=== PATIENT | female | born 1960 | race Caucasian/White ===

== ENCOUNTER 2020-07-10 11:25 | Observation (INO) ==
[2020-07-10] MEDS ORDERED: METOCLOPRAMIDE 10 MG/2 ML VIAL IV STA (12:29)
[2020-07-10] MEDS ORDERED: SODIUM CHLORIDE 0.9% 1,000 ML IV STA (12:29)
[2020-07-10 13:12] LABS: PT Patient Result 10.9 SECS (9.8-11.9); Partial Thromboplastin Time 25.4 SECS (23.9-33.8)
[2020-07-10 13:15] LABS: Alanine Aminotransferase 81 U/L (13-56); Albumin 2.7 G/DL (3.4-5.0); Alkaline Phosphatase 126 U/L (45-117); Aspartate Amino Transferase 32 U/L (0-37); Bilirubin,Direct < 0.100 MG/DL (0.0-0.20); Bilirubin,Indirect 0.3 MG/DL (0.0-1.0); Bilirubin,Total < 0.39 MG/DL (0.2-1.0); Total Protein 7.4 G/DL (6.4-8.3)
[2020-07-10] MEDS ORDERED: ONDANSETRON 4 MG/2 ML VIAL IV PRN (13:27)
[2020-07-10] MEDS ORDERED: GLUCAGON 1 MG VIAL IM PRN (13:27)
[2020-07-10] MEDS ORDERED: DEXTROSE 50% 25 GM/50 ML VIAL IV PRN (13:27)
[2020-07-10] MEDS ORDERED: cefTRIAXone 1,000 MG VIAL ONE (13:29)
[2020-07-10] MEDS ORDERED: cefTRIAXone 1,000 MG in SYRINGE 1 EACH IV SCH (13:30)
[2020-07-10] MEDS ORDERED: MORPHINE 4 MG/1 ML VIAL IV STA (13:34)
[2020-07-10] MEDS ORDERED: cefTRIAXone 1,000 MG in SODIUM CHLORIDE 0.9% 100 ML IV STA (13:36)
[2020-07-10] MEDS ORDERED: MORPHINE 4 MG/1 ML VIAL ONE (13:45)
[2020-07-10 14:09] LABS: Basophils # 0.1 10*3/uL (0.0-0.2); Basophils % 0.3 % (0.0-0.8); Eosinophils # 0.1 10*3/uL (0.0-0.87); Eosinophils % 0.6 % (0.00-10.9); Hematocrit 39.5 VOL% (35.7-47.0); Hemoglobin 12.5 GM/DL (12.0-16.0); Immature Granulocytes % 2.3 %; Immature Granulocytes Absolute 0.55 #; Lymphocytes # 2.2 10*3/uL (1.4-4.0); Lymphocytes % 9.2 % (21.3-54.2); Mean Corpuscular HGB Conc 31.6 GM/DL (32-36); Mean Platelet Volume 10.2 FL (9.6-12.0); Monocytes % 3.6 % (1.7-12.7); Platelet Count 516 T/CUMM (130-400); Red Blood Count 4.03 MC/CUMM (3.8-5.5); Red Cell Distribution Width 15.2 % (9.3-17.3); White Blood Count 23.4 T/CUMM (4-12)
[2020-07-10] MEDS ORDERED: LORazepam 2 MG/1 ML VIAL ONE (14:12)
[2020-07-10] MEDS ORDERED: LORazepam 2 MG/1 ML VIAL IV STA (14:20)
[2020-07-10 14:39] LABS: Lymphocytes 13 % (20-55); Macrocytosis 1+; Segmented Neutrophils 83 % (50-85); Total Cells Counted 100
[2020-07-10 14:40] LABS: Platelet Estimate Increased
[2020-07-10 14:41] LABS: Anisocytosis 2+; Burr Cells 1+; Polychromasia 1+; Toxic Granulation 1+
[2020-07-10 16:42] LABS: Alanine Aminotransferase 86 U/L (13-56); Albumin 2.7 G/DL (3.4-5.0); Alkaline Phosphatase 122 U/L (45-117); Aspartate Amino Transferase 30 U/L (0-37); Bilirubin,Total < 0.39 MG/DL (0.2-1.0); Blood Urea Nitrogen 35 MG/DL (7-18); Calcium 8.5 MG/DL (8.5-10.1); Estimated Glom Filtration Rate 20 ML/MIN; Glucose 93 MG/DL (74-106); Osmolality,Calculated 282.7 MOS/KG (273-304); Total Protein 7.3 G/DL (6.4-8.3)
[2020-07-10] MEDS: MORPHINE 4 MG/1 ML VIAL IV PRN ×2 (17:33→21:33)
[2020-07-10 18:32] LABS: Bacteria,Urine Occasional /HPF (Few); Bilirubin,Urine Negative (Negative); Blood, Urine Negative (Negative); Glucose,Urine (UA) Negative (Negative); Ketones,Urine Negative (Negative); Mucus,Urine Occasional /LPF (Occasional); Nitrite,Urine Negative (Negative); Protein,Urine Negative; RBC,Urine <1 /HPF (0-4); Squamous Epithelial Cell,Urine Occasional /HPF (0-10); Urine Appearance CLEAR (Clear); Urine Color Straw (Yellow); Urine Specific Gravity 1.011 (1.001-1.035); Urine Urobilinogen < 2.0 EU/DL (0.2-1.0); WBC,Urine 1 /HPF (0-6)
[2020-07-10 18:35] LABS: Barbiturates Screen,Urine Negative (Negative); Benzodiazepines Screen,Urine Negative (Negative); Cannabinoid Screen,Urine Negative (Negative); Opiate Screen,Urine Positive (Negative); Phencyclidine Screen,Urine Negative (Negative)
[2020-07-10] MEDS: PROMETHAZINE 25 MG/1 ML VIAL IM PRN (21:35)
[2020-07-11] MEDS: PROMETHAZINE 25 MG/1 ML VIAL IM PRN ×2 (04:35→19:40)
[2020-07-11 06:27] LABS: Basophils % 0.2 % (0.0-0.8); Eosinophils # 0.2 10*3/uL (0.0-0.87); Eosinophils % 0.9 % (0.00-10.9); Hematocrit 30.8 VOL% (35.7-47.0); Immature Granulocytes % 1.9 %; Immature Granulocytes Absolute 0.31 #; Lymphocytes % 12.4 % (21.3-54.2); Mean Corpuscular HGB Conc 32.5 GM/DL (32-36); Mean Corpuscular Volume 96.9 FL (87-102); Mean Platelet Volume 10.1 FL (9.6-12.0); Monocytes % 5.1 % (1.7-12.7); Neutrophils % 79.5 % (38.7-73.9); Platelet Count 430 T/CUMM (130-400)
[2020-07-11 06:40] LABS: Red Blood Count 3.18 MC/CUMM (3.8-5.5)
[2020-07-11 06:51] LABS: Albumin 2.1 G/DL (3.4-5.0); Bilirubin,Total 0.7 MG/DL (0.2-1.0); Calcium 8.1 MG/DL (8.5-10.1); Osmolality,Calculated 283.3 MOS/KG (273-304); Risk Ratio 3.18; Thyroid Stimulating Hormone 2.48 uIU/ml (0.358-3.74); Total Protein 5.6 G/DL (6.4-8.3); VLDL CHOLESTEROL 24.6 MG/DL
[2020-07-11 07:04] LABS: Burr Cells Slight; Hypochromasia 1+; Lymphocytes 9 % (20-55); Microcytosis 1+; Platelet Estimate Adequate; Segmented Neutrophils 87 % (50-85); Total Cells Counted 100
[2020-07-11 07:05] LABS: Ovalocytes Slight
[2020-07-11] MEDS: cefTRIAXone 1,000 MG in SYRINGE 1 EACH IV SCH (08:59)
[2020-07-11 09:56] LABS: Appearance,CSF Clear; Lymphocytes,CSF 50 %; Monocytes,CSF 50 %; Red Blood Cell,CSF < 1 C/CUMM; White Blood Cell,CSF 3 C/CUMM
[2020-07-11 10:07] LABS: Glucose,CSF 57 MG/DL (40-70)
[2020-07-11] MEDS: SODIUM BICARB INJ 100 MEQ in DEXTROSE 5% 1,000 ML IV SCH (11:01)
[2020-07-11] MEDS ORDERED: MAGNESIUM SULF RIDER 2 GM in PREMIX 1 EACH IV ONE (12:00)
[2020-07-11] MEDS: MORPHINE 4 MG/1 ML VIAL IV PRN (13:02)
[2020-07-11] MEDS ORDERED: BUTALBITAL/ACETAMIN/CAFFEINE 50-325-40 MG TABLET PO PRN (14:02)
[2020-07-11] MEDS ORDERED: BUTALBITAL/ACETAMIN/CAFFEINE 50-325-40 MG TABLET PO ONE (14:03)
[2020-07-11] MEDS ORDERED: ZIPRASIDONE 20 MG/1 ML VIAL IM ONE (14:39)
[2020-07-11] MEDS ORDERED: chlorproMAZINE INJ 50 MG in SODIUM CHLORIDE 0.9% 100 ML IV ONE (21:00)
[2020-07-12] MEDS: SODIUM BICARB INJ 100 MEQ in DEXTROSE 5% 1,000 ML IV SCH (01:44)
[2020-07-12] MEDS: PROMETHAZINE 25 MG/1 ML VIAL IM PRN (02:00)
[2020-07-12 06:07] LABS: Basophils % 0.2 % (0.0-0.8); Eosinophils # 0.1 10*3/uL (0.0-0.87); Eosinophils % 0.9 % (0.00-10.9); Hemoglobin 9.2 GM/DL (12.0-16.0); Immature Granulocytes % 1.9 %; Immature Granulocytes Absolute 0.21 #; Lymphocytes # 1.9 10*3/uL (1.4-4.0); Lymphocytes % 16.5 % (21.3-54.2); Mean Corpuscular HGB Conc 32.9 GM/DL (32-36); Mean Platelet Volume 9.8 FL (9.6-12.0); Monocytes % 6.1 % (1.7-12.7); Neutrophils % 74.4 % (38.7-73.9); Platelet Count 398 T/CUMM (130-400); Red Blood Count 2.98 MC/CUMM (3.8-5.5); Red Cell Distribution Width 14.7 % (9.3-17.3); White Blood Count 11.3 T/CUMM (4-12)
[2020-07-12 06:34] LABS: Alanine Aminotransferase 37 U/L (13-56); Alkaline Phosphatase 99 U/L (45-117); Aspartate Amino Transferase 24 U/L (0-37); Bilirubin,Total < 0.39 MG/DL (0.2-1.0); Blood Urea Nitrogen 15 MG/DL (7-18); Estimated Glom Filtration Rate 26 ML/MIN; Glucose 122 MG/DL (74-106); Osmolality,Calculated 278.5 MOS/KG (273-304); Total Protein 5.6 G/DL (6.4-8.3)
[2020-07-12 08:12] VITALS: BP 113/56
[2020-07-12] MEDS: cefTRIAXone 1,000 MG in SYRINGE 1 EACH IV SCH (09:04)
[2020-07-12] MEDS ORDERED: SUMAtriptan 6 MG/0.5 ML VIAL SUBCUT ONE (09:04)
[2020-07-12 09:31] LABS: Total Protein 5.7 G/DL (6.4-8.3)
[2020-07-12 12:05] LABS: VDRL Spinal Fluid Negative (Negative)
[2020-07-12 16:56] LABS: CMV PCR Source CSF; Epstein-Barr Virus Result Negative (Negative); Epstein-Barr Virus Source CSF; Specimen Source CSF
[2020-07-15 10:11] LABS: Immunoglobulin A (Chem) 201 MG/DL (70-400); Immunoglobulin G (Chem) 702 MG/DL (700-1600); Immunoglobulin M (Chem) 32 MG/DL (40-230); Total Protein (Chem) 5.7 G/DL (6.4-8.3)
[2020-07-15 12:46] LABS: West Nile Virus Ab, IgG, CSF Negative (Negative); West Nile Virus Ab, IgM, CSF Negative (Negative)
[2020-07-16 00:31] LABS: Enterovirus PCR Source CSF
[2020-07-16 00:34] LABS: Adenovirus PCR Negative (Negative); Specimen Source CSF
[2020-07-16 10:52] LABS: Albumin (SPE) Rel % 52.6 %; Alpha 1 (SPE) 0.3 G/DL (0.1-0.4); Alpha 1 (SPE) Rel % 5.9 %; Alpha 2 (SPE) Rel % 17.4 %; Beta (SPE) 0.6 G/DL (0.5-1.1); Beta (SPE) Rel % 11.3 %; Gamma (SPE) Rel % 12.8 %
[2020-07-16 10:56] LABS: Gamma (SPE) 0.7 G/DL (0.7-1.7)
[2020-07-16 12:41] LABS: M. Tuberculosis PCR Result Negative (Negative); M. Tuberculosis PCR Source CSF
== END 2020-07-12 11:20 | disposition home or self-care (01) ==
LOC: N.ED 11:25 → N.EDINP 11:25 → N.5E 15:59
PROVIDERS: ADMIT Hospitalist; ATTEND Hospitalist

== ENCOUNTER 2020-07-16 10:55 | Observation (INO) ==
[2020-07-16] MEDS ORDERED: SODIUM CHLORIDE 0.9% 1,000 ML IV STA (13:16)
[2020-07-16] MEDS ORDERED: ONDANSETRON 4 MG/2 ML VIAL IV STA (13:39)
[2020-07-16 13:42] LABS: Basophils # 0.1 10*3/uL (0.0-0.2); Basophils % 0.5 % (0.0-0.8); Eosinophils # 0.1 10*3/uL (0.0-0.87); Eosinophils % 0.6 % (0.00-10.9); Hematocrit 34.2 VOL% (35.7-47.0); Hemoglobin 11.1 GM/DL (12.0-16.0); Immature Granulocytes % 0.6 %; Immature Granulocytes Absolute 0.12 #; Lymphocytes # 1.9 10*3/uL (1.4-4.0); Lymphocytes % 8.8 % (21.3-54.2); Mean Corpuscular HGB Conc 32.5 GM/DL (32-36); Mean Corpuscular Volume 94.7 FL (87-102); Mean Platelet Volume 9.8 FL (9.6-12.0); Neutrophils % 86.5 % (38.7-73.9); Platelet Count 704 T/CUMM (130-400); Red Blood Count 3.61 MC/CUMM (3.8-5.5); Red Cell Distribution Width 14.4 % (9.3-17.3); White Blood Count 21.6 T/CUMM (4-12)
[2020-07-16 14:04] LABS: Bacteria,Urine Occasional /HPF (Few); Bilirubin,Urine Negative (Negative); Blood, Urine Negative (Negative); Glucose,Urine (UA) Negative (Negative); Ketones,Urine 5 mg/dL (Negative); Mucus,Urine Occasional /LPF (Occasional); Nitrite,Urine Negative (Negative); Protein,Urine Negative; RBC,Urine 1 /HPF (0-4); Squamous Epithelial Cell,Urine Occasional /HPF (0-10); Urine Appearance CLEAR (Clear); Urine Color Yellow (Yellow); Urine Specific Gravity 1.019 (1.001-1.035); Urine Urobilinogen < 2.0 EU/DL (0.2-1.0); WBC,Urine <1 /HPF (0-6)
[2020-07-16 14:05] LABS: Lymphocytes 9 % (20-55); Segmented Neutrophils 89 % (50-85); Total Cells Counted 100
[2020-07-16 14:11] LABS: Alanine Aminotransferase 26 U/L (13-56); Albumin 2.6 G/DL (3.4-5.0); Alkaline Phosphatase 131 U/L (45-117); Aspartate Amino Transferase 16 U/L (0-37); Bilirubin,Total < 0.39 MG/DL (0.2-1.0); Blood Urea Nitrogen 25 MG/DL (7-18); Calcium 8.8 MG/DL (8.5-10.1); Estimated Glom Filtration Rate 28 ML/MIN; Glucose 90 MG/DL (74-106); Osmolality,Calculated 269.4 MOS/KG (273-304); Total Protein 6.6 G/DL (6.4-8.3)
[2020-07-16] MEDS ORDERED: SIMETHICONE CHEW 125 MG TABLET PO PRN (15:35)
[2020-07-16] MEDS ORDERED: hydrALAZINE 20 MG/1 ML VIAL IV PRN (15:35)
[2020-07-16] MEDS ORDERED: DOCUSATE SODIUM 100 MG CAPSULE PO PRN (15:35)
[2020-07-16] MEDS ORDERED: ONDANSETRON 4 MG/2 ML VIAL IV PRN (15:35)
[2020-07-16] MEDS ORDERED: METOCLOPRAMIDE 10 MG/2 ML VIAL IV STA (15:38)
[2020-07-16] MEDS ORDERED: MAGNESIUM SULF RIDER 4 GM in PREMIX 1 EACH IV PRN (15:47)
[2020-07-16] MEDS ORDERED: MAGNESIUM SULF RIDER 2 GM in PREMIX 1 EACH IV PRN (15:47)
[2020-07-16] MEDS ORDERED: CIPROFLOXACIN 400 MG/200 ML PREMIX IV ONE (16:54)
[2020-07-16] MEDS: SODIUM CHLORIDE 0.9% 1,000 ML IV SCH (18:38)
[2020-07-16] MEDS: ACETAMINOPHEN 325 MG TABLET PO PRN (20:20)
[2020-07-16] MEDS: metroNIDAZOLE INJ 500 MG in PREMIX 1 EACH IV SCH (21:35)
[2020-07-16] MEDS: ENOXAPARIN 30 MG/0.3 ML SYRINGE SUBCUT SCH (21:36)
[2020-07-16] MEDS: PANTOPRAZOLE 40 MG TABLET PO SCH (21:36)
[2020-07-16] MEDS ORDERED: PROMETHAZINE INJ 25 MG in SODIUM CHLORIDE 0.9% 50 ML IV PRN (22:04)
[2020-07-16] MEDS: CIPROFLOXACIN INJ 400 MG in PREMIX 1 EACH IV SCH (23:33)
[2020-07-17] MEDS: PANTOPRAZOLE 40 MG TABLET PO SCH ×3 (02:34→20:17)
[2020-07-17] MEDS: metroNIDAZOLE INJ 500 MG in PREMIX 1 EACH IV SCH ×4 (03:25→21:00)
[2020-07-17] MEDS: ACETAMINOPHEN 325 MG TABLET PO PRN ×2 (03:43→10:36)
[2020-07-17 05:43] LABS: Basophils # 0.1 10*3/uL (0.0-0.2); Basophils % 0.5 % (0.0-0.8); Eosinophils # 0.1 10*3/uL (0.0-0.87); Eosinophils % 0.8 % (0.00-10.9); Hematocrit 28.5 VOL% (35.7-47.0); Immature Granulocytes % 0.7 %; Immature Granulocytes Absolute 0.11 #; Lymphocytes # 2.2 10*3/uL (1.4-4.0); Lymphocytes % 13.3 % (21.3-54.2); Mean Corpuscular HGB Conc 31.6 GM/DL (32-36); Mean Corpuscular Volume 97.3 FL (87-102); Mean Platelet Volume 9.8 FL (9.6-12.0); Monocytes % 3.7 % (1.7-12.7); Platelet Count 625 T/CUMM (130-400); Red Blood Count 2.93 MC/CUMM (3.8-5.5); Red Cell Distribution Width 14.4 % (9.3-17.3); White Blood Count 16.4 T/CUMM (4-12)
[2020-07-17 06:02] LABS: Calcium 7.7 MG/DL (8.5-10.1)
[2020-07-17] MEDS: LACTOBACILLUS RHAMNOSUS GG CAPSULE PO SCH ×2 (10:22→20:18)
[2020-07-17] MEDS: POTASSIUM CHLORIDE 20 MEQ TABLET PO SCH ×2 (10:22→18:49)
[2020-07-17] MEDS: SODIUM CHLORIDE 0.9% 1,000 ML IV SCH ×2 (10:23→18:05)
[2020-07-17] MEDS: CIPROFLOXACIN INJ 400 MG in PREMIX 1 EACH IV SCH (15:19)
[2020-07-17] MEDS ORDERED: MAGNESIUM SULF RIDER 2 GM in PREMIX 1 EACH IV ONE (15:30)
[2020-07-17] MEDS: ENOXAPARIN 30 MG/0.3 ML SYRINGE SUBCUT SCH (20:18)
[2020-07-17] MEDS: BUTALBITAL/ACETAMIN/CAFFEINE 50-325-40 MG TABLET PO PRN (20:18)
[2020-07-18] MEDS: metroNIDAZOLE INJ 500 MG in PREMIX 1 EACH IV SCH ×4 (01:49→20:49)
[2020-07-18] MEDS: ACETAMINOPHEN 325 MG TABLET PO PRN (01:53)
[2020-07-18 06:46] LABS: Basophils # 0.1 10*3/uL (0.0-0.2); Basophils % 0.7 % (0.0-0.8); Eosinophils # 0.1 10*3/uL (0.0-0.87); Eosinophils % 1.3 % (0.00-10.9); Hematocrit 27.2 VOL% (35.7-47.0); Hemoglobin 8.4 GM/DL (12.0-16.0); Immature Granulocytes % 0.8 %; Immature Granulocytes Absolute 0.08 #; Lymphocytes # 1.9 10*3/uL (1.4-4.0); Lymphocytes % 18.5 % (21.3-54.2); Mean Corpuscular HGB Conc 30.9 GM/DL (32-36); Mean Corpuscular Volume 98.6 FL (87-102); Mean Platelet Volume 9.7 FL (9.6-12.0); Monocytes % 4.1 % (1.7-12.7); Neutrophils % 74.6 % (38.7-73.9); Platelet Count 571 T/CUMM (130-400); Red Blood Count 2.76 MC/CUMM (3.8-5.5); Red Cell Distribution Width 14.3 % (9.3-17.3); White Blood Count 10.4 T/CUMM (4-12)
[2020-07-18 06:57] LABS: Calcium 7.6 MG/DL (8.5-10.1); Osmolality,Calculated 278.4 MOS/KG (273-304)
[2020-07-18] MEDS: SODIUM CHLORIDE 0.9% 1,000 ML IV SCH ×2 (07:40)
[2020-07-18] MEDS: PANTOPRAZOLE 40 MG TABLET PO SCH ×2 (09:20→20:49)
[2020-07-18] MEDS: LACTOBACILLUS RHAMNOSUS GG CAPSULE PO SCH ×2 (09:20→20:49)
[2020-07-18] MEDS: POTASSIUM CHLORIDE 20 MEQ TABLET PO SCH ×2 (09:20→18:23)
[2020-07-18] MEDS: CIPROFLOXACIN INJ 400 MG in PREMIX 1 EACH IV SCH (11:26)
[2020-07-18] MEDS: BUTALBITAL/ACETAMIN/CAFFEINE 50-325-40 MG TABLET PO PRN ×2 (11:38→18:23)
[2020-07-18] MEDS: ENOXAPARIN 30 MG/0.3 ML SYRINGE SUBCUT SCH (20:49)
[2020-07-19] MEDS: SODIUM CHLORIDE 0.9% 1,000 ML IV SCH (00:09)
[2020-07-19] MEDS: ACETAMINOPHEN 325 MG TABLET PO PRN (00:12)
[2020-07-19] MEDS: metroNIDAZOLE INJ 500 MG in PREMIX 1 EACH IV SCH ×3 (01:25→14:33)
[2020-07-19] MEDS: CIPROFLOXACIN INJ 400 MG in PREMIX 1 EACH IV SCH (03:24)
[2020-07-19 06:01] LABS: Basophils # 0.1 10*3/uL (0.0-0.2); Eosinophils # 0.1 10*3/uL (0.0-0.87); Eosinophils % 1.9 % (0.00-10.9); Hematocrit 24.1 VOL% (35.7-47.0); Hemoglobin 7.4 GM/DL (12.0-16.0); Immature Granulocytes % 0.7 %; Immature Granulocytes Absolute 0.05 #; Lymphocytes # 1.9 10*3/uL (1.4-4.0); Lymphocytes % 26.5 % (21.3-54.2); Mean Corpuscular HGB Conc 30.7 GM/DL (32-36); Mean Corpuscular Volume 100.4 FL (87-102); Mean Platelet Volume 9.5 FL (9.6-12.0); Monocytes % 5.8 % (1.7-12.7); Neutrophils % 64.1 % (38.7-73.9); Platelet Count 525 T/CUMM (130-400); Red Cell Distribution Width 14.3 % (9.3-17.3); White Blood Count 7.2 T/CUMM (4-12)
[2020-07-19 06:23] LABS: Calcium 7.5 MG/DL (8.5-10.1)
[2020-07-19 06:25] LABS: Calcium 7.3 MG/DL (8.5-10.1); Osmolality,Calculated 273.7 MOS/KG (273-304)
[2020-07-19] MEDS ORDERED: SODIUM CHLORIDE 0.9% 500 ML IV ONE (08:14)
[2020-07-19 08:24] LABS: Hematocrit 27.7 VOL% (35.7-47.0); Hemoglobin 8.4 GM/DL (12.0-16.0)
[2020-07-19 08:30] LABS: Basophils # 0.1 10*3/uL (0.0-0.2); Eosinophils # 0.1 10*3/uL (0.0-0.87); Eosinophils % 1.5 % (0.00-10.9); Hematocrit 27.4 VOL% (35.7-47.0); Hemoglobin 8.5 GM/DL (12.0-16.0); Immature Granulocytes % 0.9 %; Immature Granulocytes Absolute 0.06 #; Lymphocytes # 1.6 10*3/uL (1.4-4.0); Lymphocytes % 23.5 % (21.3-54.2); Mean Corpuscular Volume 101.1 FL (87-102); Mean Platelet Volume 9.5 FL (9.6-12.0); Monocytes % 3.9 % (1.7-12.7); Neutrophils % 69.2 % (38.7-73.9); Platelet Count 548 T/CUMM (130-400); Red Blood Count 2.71 MC/CUMM (3.8-5.5); Red Cell Distribution Width 14.6 % (9.3-17.3); White Blood Count 6.9 T/CUMM (4-12)
[2020-07-19 08:38] LABS: % Iron Saturation 19.1 % (18-50); Ferritin 102.8 ng/ml (8-252)
[2020-07-19] MEDS ORDERED: SODIUM CHLORIDE 0.9% 1,000 ML IV PRN (08:43)
[2020-07-19 08:58] LABS: Folate 10.8 NG/ML (5.4-24.0); Vitamin B12 448 PG/ML (211-911)
[2020-07-19] MEDS: PANTOPRAZOLE 40 MG TABLET PO SCH (09:00)
[2020-07-19] MEDS: LACTOBACILLUS RHAMNOSUS GG CAPSULE PO SCH (09:00)
[2020-07-19] MEDS: POTASSIUM CHLORIDE 20 MEQ TABLET PO SCH ×2 (09:00→16:55)
[2020-07-19 09:33] LABS: Sedimentation Rate-Westergren 60 MM/HR (0-30)
[2020-07-19 18:17] VITALS: BP 98/57
[2020-07-22 09:13] LABS: Hemoglobin A1 (Alkaline) 97.2 % (96.5-98.5); Hemoglobin A2 (Alkaline) 2.8 % (1.5-3.5)
== END 2020-07-19 18:41 | disposition home health service (06) ==
LOC: N.ED 10:55 → N.EDINP 10:55 → N.3E 18:01
PROVIDERS: ADMIT Internal Medicine; ATTEND Internal Medicine